=== PATIENT | female | born 1990 | race Caucasian/White ===

== ENCOUNTER 2024-02-08 21:01 | Emergency (ER) | payer MEDICARE, MEDICAID, SELFPAY ==
[2024-02-08] VITALS (22 sets, daily range): BP systolic 81–113; BP diastolic 52–79; PULSE 84–149; TEMP 36.7–36.9; O2SAT 88–98
--- NOTE | 2024-02-08 21:02 | ECG_ITS ---
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
--- NOTE | 2024-02-08 21:03 | ED_ITS ---
Documented by User: ISHA Nayak 02/08/24 21:25 HPI - Seizure General Chief Complaint: Seizure Stated Complaint: seizure Time Seen by Provider: 02/08/24 21:01 History of Present Illness HPI Narrative: Patient is a 33-year-old female with a history of cerebral palsy and developmental delay with reported history of seizure disorder from long-term care by ambulance for evaluation of possible seizure activity tonight. senior living reports that the patient has not quite been herself and they witnessed episodes of her tensing up which may be seizure activity. No falls or injuries. No reported fevers although the patient does feel warm on arrival. History is otherwise limited, patient is not able to contribute to the history. She is tachycardic at initial interview. EMS reports witnessing several episodes during transport of the patient arching her back and tensing her extremities. She is noted to have contractures of the legs. She is a full code. She is prescribed Dilantin, Depakote. Related Data Home Medications ?Medication ?Instructions ?Recorded ?Confirmed acetaminophen 325 mg tablet 650 mg PO Q4H PRN fever or pain 02/08/24 02/08/24 baclofen 20 mg tablet 20 mg PO BID 02/08/24 02/08/24 cetirizine 10 mg tablet 10 mg PO DAILY 02/08/24 02/08/24 divalproex 250 mg tablet,delayed 250 mg PO BID 02/08/24 02/08/24 release (Depakote) escitalopram oxalate 20 mg tablet 20 mg PO DAILY 02/08/24 02/08/24 lamotrigine 100 mg tablet 100 mg PO QPM 02/08/24 02/08/24 lamotrigine 150 mg tablet 150 mg PO DAILY 02/08/24 02/08/24 phenytoin sodium extended 100 mg 100 mg PO QAM 02/08/24 02/08/24 capsule phenytoin sodium extended 30 mg 130 mg PO QPM 02/08/24 02/08/24 capsule (Dilantin) Allergies Allergy/AdvReac Type Severity Reaction Status Date / Time azithromycin Allergy Severe Verified 02/08/24 21:08 Penicillins Allergy Severe Verified 02/08/24 21:08 Sulfa (Sulfonamide Allergy Severe Verified 02/08/24 21:08 Antibiotics) tramadol Allergy Severe Verified 02/08/24 21:08 Review of Systems ROS Status of ROS unobtainable due to medical condition and unobtainable due to mental status Exam Narrative Exam Narrative: Gen.: Awake, alert, in no distress Head: Atraumatic ENT: Moist mucous membranes; No dental injury Respiratory: No respiratory distress, lungs clear bilaterally Cardio: Tachycardia Gastrointestinal: Abdomen is soft, nondistended and nontender to palpation Extremities: Patient moves her upper extremities, lower extremities with contractures, right foot with severe contracture and deformity Psych: Normal mood and affect Neuro: No focal neuro deficit Skin: Warm, dry, intact; No rashes noted Constitutional Vital Signs, click to edit/add: Last Vital Signs Temp 98.0 F 02/08/24 23:33 Pulse 91 H 02/08/24 23:00 Resp 18 02/08/24 21:02 BP 92/66 02/08/24 23:00 Pulse Ox 97 02/08/24 23:00 O2 Del Method Room Air 02/08/24 21:02 Course Vital Signs Vital signs: Vital Signs Temperature 98.4 F 02/08/24 21:02 Pulse Rate 120 H 02/08/24 21:02 Respiratory Rate 18 02/08/24 21:02 Blood Pressure 113/79 02/08/24 21:02 Pulse Oximetry 96 02/08/24 21:02 Oxygen Delivery Method Room Air 02/08/24 21:02 Temperature 98.0 F 02/08/24 23:33 Pulse Rate 91 H 02/08/24 23:00 Respiratory Rate 18 02/08/24 21:02 Blood Pressure 92/66 02/08/24 23:00 Pulse Oximetry 97 02/08/24 23:00 Oxygen Delivery Method Room Air 02/08/24 21:02 MDM - Seizure MDM Narrative Medical decision making narrative: 2124: On arrival, patient was witnessed to have episodes of arching her back and tensing up. She has no dental injury, no other focal exam findings concerning for open wounds or rashes. No evidence of injury. She is tachycardic on arrival and IV fluids and sepsis labs were ordered including respiratory panel and chest x-ray. IV Valium ordered for seizure control. Lab results, chest x- ray results are pending at this time and case is turned over to attending physician for disposition. Medical Records Attestation: I reviewed the patient's medical records. Lab Data Attestation: I reviewed the patient's lab results. Labs: Lab Results 02/08/24 02/08/24 Range/Units 21:09 23:15 WBC 8.0 (4.0-11.0) 10^3/uL RBC 3.59 L (4.20-5.40) 10^6/uL Hgb 11.7 L (12.0-16.0) g/dL Hct 36.8 (36.0-48.0) % MCV 102.5 H (81.0-99.0) fL MCH 32.6 (26.7-34.0) pg MCHC 31.8 (29.9-35.2) g/dL RDW 14.5 (11.0-15.0) % Plt Count 283 (150-450) 10^3/uL MPV 9.5 (9.5-13.5) fL Neut % (Auto) 42.9 L (43.0-75.0) % Lymph % (Auto) 41.2 (20.5-60.0) % [place] % (Auto) 11.3 (1.7-12.0) % Eos % (Auto) 3.5 (0.9-7.0) % Baso % (Auto) 0.5 (0.2-2.0) % Neut # (Auto) 3.4 (1.4-6.5) 10^3/uL Lymph # (Auto) 3.3 (1.2-3.8) 10^3/uL [place] # (Auto) 0.9 H (0.3-0.8) 10^3/uL Eos # (Auto) 0.3 (0.0-0.7) 10^3/uL Baso # (Auto) 0.0 (0.0-0.1) 10^3/uL Abs Immat Gran (auto) 0.05 H (0.00-0.03) 10^3/uL Imm/Tot Granulo (auto) 0.6 H (0.0-0.5) % VBG pH 7.492 H (7.330-7.430) VBG pCO2 33.8 L (40.0-52.0) mmHg Sodium 142 (136-145) mmol/L Potassium 4.1 (3.5-5.1) mmol/L Chloride 104 (98-107) mmol/L Carbon Dioxide 27.4 (21.0-32.0) mmol/L Anion Gap 14.7 BUN 16.0 (7.0-18.0) mg/dL Creatinine 0.44 L (0.55-1.02) mg/dL Est GFR ( Amer) >60 (>=60) Est GFR (Non-Af Amer) >60 (>=60) BUN/Creatinine Ratio 36.4 Glucose 93 (74-106) mg/dL Lactate 3.4 H* 0.8 (0.4-2.0) mmol/L Calcium 9.7 (8.5-10.1) mg/dL Magnesium 1.7 L (1.8-2.4) mg/dL Total Bilirubin <0.1 L (0.2-1.0) mg/dL AST 15 (15-37) U/L ALT 19 (14-59) U/L Alkaline Phosphatase 133 H (46-116) U/L Total Protein 7.5 (6.4-8.2) g/dL Albumin 3.6 (3.4-5.0) g/dL Globulin 3.9 g/dL Albumin/Globulin Ratio 0.9 TSH 3.277 (0.358-3.740) uIU/mL Phenytoin 7.2 L (10.0-20.0) ug/mL ECG Data Attestation: I personally reviewed and interpreted this ECG as follows: (Sinus tachycardia at a rate of 128, no acute ST elevation, no ectopy. Mild artifact noted. EKG reviewed by attending physician) Discharge Plan Discharge Chief Complaint: Seizure Clinical Impression: Epileptic seizure, Seizure secondary to subtherapeutic anticonvulsant medication Prescriptions / Home Meds: No Action baclofen 20 mg tablet 20 mg PO BID cetirizine 10 mg tablet 10 mg PO DAILY Dilantin 30 mg capsule 130 mg PO QPM acetaminophen 325 mg tablet 650 mg PO Q4H PRN (Reason: fever or pain) escitalopram oxalate 20 mg tablet 20 mg PO DAILY lamotrigine 100 mg tablet 100 mg PO QPM lamotrigine 150 mg tablet 150 mg PO DAILY phenytoin sodium extended 100 mg capsule 100 mg PO QAM divalproex [Depakote] 250 mg tablet,delayed release (DR/EC) 250 mg PO BID Print Language: Malay Referrals: EZRA DOUGLAS [Primary Care Provider] - 1 week Documented by User: Jacqui Strauss MD 02/09/24 01:30 HPI - Seizure General Chief Complaint: Seizure Stated Complaint: seizure Time Seen by Provider: 02/08/24 21:01 Related Data Home Medications ?Medication ?Instructions ?Recorded ?Confirmed acetaminophen 325 mg tablet 650 mg PO Q4H PRN fever or pain 02/08/24 02/08/24 baclofen 20 mg tablet 20 mg PO BID 02/08/24 02/08/24 cetirizine 10 mg tablet 10 mg PO DAILY 02/08/24 02/08/24 divalproex 250 mg tablet,delayed 250 mg PO BID 02/08/24 02/08/24 release (Depakote) escitalopram oxalate 20 mg tablet 20 mg PO DAILY 02/08/24 02/08/24 lamotrigine 100 mg tablet 100 mg PO QPM 02/08/24 02/08/24 lamotrigine 150 mg tablet 150 mg PO DAILY 02/08/24 02/08/24 phenytoin sodium extended 100 mg 100 mg PO QAM 02/08/24 02/08/24 capsule phenytoin sodium extended 30 mg 130 mg PO QPM 02/08/24 02/08/24 capsule (Dilantin) Allergies Allergy/AdvReac Type Severity Reaction Status Date / Time azithromycin Allergy Severe Verified 02/08/24 21:08 Penicillins Allergy Severe Verified 02/08/24 21:08 Sulfa (Sulfonamide Allergy Severe Verified 02/08/24 21:08 Antibiotics) tramadol Allergy Severe Verified 02/08/24 21:08 Exam Constitutional Vital Signs, click to edit/add: Last Vital Signs Temp 98.0 F 02/08/24 23:33 Pulse 91 H 02/08/24 23:00 Resp 18 02/08/24 21:02 BP 92/66 02/08/24 23:00 Pulse Ox 97 02/08/24 23:00 O2 Del Method Room Air 02/08/24 21:02 Course Vital Signs Vital signs: Vital Signs Temperature 98.4 F 02/08/24 21:02 Pulse Rate 120 H 02/08/24 21:02 Respiratory Rate 18 02/08/24 21:02 Blood Pressure 113/79 02/08/24 21:02 Pulse Oximetry 96 02/08/24 21:02 Oxygen Delivery Method Room Air 02/08/24 21:02 Temperature 98.0 F 02/08/24 23:33 Pulse Rate 91 H 02/08/24 23:00 Respiratory Rate 18 02/08/24 21:02 Blood Pressure 92/66 02/08/24 23:00 Pulse Oximetry 97 02/08/24 23:00 Oxygen Delivery Method Room Air 02/08/24 21:02 MDM - Seizure MDM Narrative Medical decision making narrative: 2124: On arrival, patient was witnessed to have episodes of arching her back and tensing up. She has no dental injury, no other focal exam findings concerning for open wounds or rashes. No evidence of injury. She is tachycardic on arrival and IV fluids and sepsis labs were ordered including respiratory panel and chest x-ray. IV Valium ordered for seizure control. Lab results, chest x- ray results are pending at this time and case is turned over to attending physician for disposition. Patient was seen and evaluated in conjunction with the physician entry level marketing assistant. She presents for evaluation of seizure-like activity. She is on Depakote and Dilantin. She does not have a fever. Rectal temperature was 98 degrees Fahrenheit. She was medicated with IV fluids and Valium and has not had any additional seizure-like activity. I was able to speak to her mother who states that she is on seizure medications because she has a history of seizures has not had any seizures an extended period of time. Her neurologist is Dr. Singh at [facility]. The mother states that she did speak to her earlier today and she was complaining of some itchy eyes like ALLERGY related symptoms. The patient's mother was unaware that he was in the emergency department but had received a call that she was being transferred here. After IV fluids, she is awake, alert, complains of a headache. She Was given some oral Tylenol. The patient's mother did come to the emergency department and the patient is alert and interactive with her mother. I had ordered IV Dilantin for the patient but she declined it. Her mother recalls that she had an episode where she received IV Dilantin in the past and was out of it for 3 days. The patient is at her neurologic baseline according to her mother and will likely be able to be returned to the extended care facility. I will suggest that Dilantin levels are followed closely and that her Dilantin medication is increased. Mother states that she had a Dilantin level checked approximately one week ago and it was 12. It is unclear why the patient's Dilantin level has dropped. She is afebrile and otherwise has been in her normal state of health. The patient is anxious to be discharged to the [facility] where she lives and her mother is in agreement with this plan. Her mom will contact the neurologist at [facility] later this morning for dose adjustment of the dilantin and further management. Medical Records Medical records narrative: The [place] [id number] XRay Report Signed Patient: DEBRA URRUTIA MR#: [id number] : 1990 Acct:[id number] Age/Sex: 33 / F ADM Date: 02/08/24 Loc: ER Attending Dr: Ordering Physician: Lashae Guadarrama Date of Service: 02/08/24 Procedure(s): XR chest 1V Accession Number(s): [id number] cc: Lashae Guadarrama; EZRA DOUGLAS ~ The [address] [address] Patient Name: DEBRA URRUTIA MRN: [id number] date: 1990 Sex: F Assigned Patient Location: ED.MAIN Current Patient Location: ED.MAIN Accession/Order Number: [id number] Exam Date: 02/08/2024 21:20 Report Date: 02/08/2024 21:57 At the request of: LASHAE GUADARRAMA Procedure: XR chest 1V EXAM: XR chest 1V HISTORY: altered COMPARISON: Acute abdominal series x-ray 11/02/2011 TECHNIQUE: Single frontal view chest x-ray FINDINGS: Mild streaky opacities at the left lower lung retrocardiac region. No large pleural effusion, pneumothorax, or acute bony abnormality. Cardiac size is unremarkable. Thoracal lumbar hardware is seen. XR/XR chest 1V IMPRESSION: Mild streaky opacities at the left lower lung retrocardiac region reflecting atelectasis, less likely mild lung infiltrates. Electronically authenticated by: NIKKI DILLON Date: 02/08/2024 21:57 Lab Data Labs: Lab Results 02/08/24 02/08/24 Range/Units 21:09 23:15 WBC 8.0 (4.0-11.0) 10^3/uL RBC 3.59 L (4.20-5.40) 10^6/uL Hgb 11.7 L (12.0-16.0) g/dL Hct 36.8 (36.0-48.0) % MCV 102.5 H (81.0-99.0) fL MCH 32.6 (26.7-34.0) pg MCHC 31.8 (29.9-35.2) g/dL RDW 14.5 (11.0-15.0) % Plt Count 283 (150-450) 10^3/uL MPV 9.5 (9.5-13.5) fL Neut % (Auto) 42.9 L (43.0-75.0) % Lymph % (Auto) 41.2 (20.5-60.0) % [place] % (Auto) 11.3 (1.7-12.0) % Eos % (Auto) 3.5 (0.9-7.0) % Baso % (Auto) 0.5 (0.2-2.0) % Neut # (Auto) 3.4 (1.4-6.5) 10^3/uL Lymph # (Auto) 3.3 (1.2-3.8) 10^3/uL [place] # (Auto) 0.9 H (0.3-0.8) 10^3/uL Eos # (Auto) 0.3 (0.0-0.7) 10^3/uL Baso # (Auto) 0.0 (0.0-0.1) 10^3/uL Abs Immat Gran (auto) 0.05 H (0.00-0.03) 10^3/uL Imm/Tot Granulo (auto) 0.6 H (0.0-0.5) % VBG pH 7.492 H (7.330-7.430) VBG pCO2 33.8 L (40.0-52.0) mmHg Sodium 142 (136-145) mmol/L Potassium 4.1 (3.5-5.1) mmol/L Chloride 104 (98-107) mmol/L Carbon Dioxide 27.4 (21.0-32.0) mmol/L Anion Gap 14.7 BUN 16.0 (7.0-18.0) mg/dL Creatinine 0.44 L (0.55-1.02) mg/dL Est GFR ( Amer) >60 (>=60) Est GFR (Non-Af Amer) >60 (>=60) BUN/Creatinine Ratio 36.4 Glucose 93 (74-106) mg/dL Lactate 3.4 H* 0.8 (0.4-2.0) mmol/L Calcium 9.7 (8.5-10.1) mg/dL Magnesium 1.7 L (1.8-2.4) mg/dL Total Bilirubin <0.1 L (0.2-1.0) mg/dL AST 15 (15-37) U/L ALT 19 (14-59) U/L Alkaline Phosphatase 133 H (46-116) U/L Total Protein 7.5 (6.4-8.2) g/dL Albumin 3.6 (3.4-5.0) g/dL Globulin 3.9 g/dL Albumin/Globulin Ratio 0.9 TSH 3.277 (0.358-3.740) uIU/mL Phenytoin 7.2 L (10.0-20.0) ug/mL Discharge Plan Discharge Chief Complaint: Seizure Clinical Impression: Epileptic seizure, Seizure secondary to subtherapeutic anticonvulsant medication Prescriptions / Home Meds: No Action baclofen 20 mg tablet 20 mg PO BID cetirizine 10 mg tablet 10 mg PO DAILY Dilantin 30 mg capsule 130 mg PO QPM acetaminophen 325 mg tablet 650 mg PO Q4H PRN (Reason: fever or pain) escitalopram oxalate 20 mg tablet 20 mg PO DAILY lamotrigine 100 mg tablet 100 mg PO QPM lamotrigine 150 mg tablet 150 mg PO DAILY phenytoin sodium extended 100 mg capsule 100 mg PO QAM divalproex [Depakote] 250 mg tablet,delayed release (DR/EC) 250 mg PO BID Print Language: Malay Referrals: EZRA DOUGLAS [Primary Care Provider] - 1 week
--- NOTE | 2024-02-08 21:03 | XR_ITS ---
The [address] [address] Patient Name: DEBRA URRUTIA MRN: [id number] date: 1990 Sex: F Assigned Patient Location: ED.MAIN Current Patient Location: ED.MAIN Accession/Order Number: [id number] Exam Date: 02/08/2024 21:20 Report Date: 02/08/2024 21:57 At the request of: LASHAE GUADARRAMA Procedure: XR chest 1V EXAM: XR chest 1V HISTORY: altered COMPARISON: Acute abdominal series x-ray 11/02/2011 TECHNIQUE: Single frontal view chest x-ray FINDINGS: Mild streaky opacities at the left lower lung retrocardiac region. No large pleural effusion, pneumothorax, or acute bony abnormality. Cardiac size is unremarkable. Thoracal lumbar hardware is seen. XR/XR chest 1V IMPRESSION: Mild streaky opacities at the left lower lung retrocardiac region reflecting atelectasis, less likely mild lung infiltrates. Electronically authenticated by: NIKIK DILLON Date: 02/08/2024 21:57
[2024-02-08] MEDS: DIAZEPAM 10 MG/2 ML SYRINGE 2 MG IV (21:24)
[2024-02-08 21:25] LABS: Basophils Percent Auto 0.5 % (0.2-2.0); Eosinophils Absolute Auto 0.3 10^3/uL (0.0-0.7); Eosinophils Percent Auto 3.5 % (0.9-7.0); Hematocrit 36.8 % (36.0-48.0); Hemoglobin 11.7 g/dL (12.0-16.0); Immature Granulocytes Abs Auto 0.05 10^3/uL (0.00-0.03); Immature Granulocytes Pct Auto 0.6 % (0.0-0.5); Lymphocytes Absolute Auto 3.3 10^3/uL (1.2-3.8); Lymphocytes Percent Auto 41.2 % (20.5-60.0); Mean Corpuscular HGB Conc 31.8 g/dL (29.9-35.2); Mean Corpuscular Hemoglobin 32.6 pg (26.7-34.0); Mean Corpuscular Volume 102.5 fL (81.0-99.0); Mean Platelet Volume 9.5 fL (9.5-13.5); Monocytes Absolute Auto 0.9 10^3/uL (0.3-0.8); Monocytes Percent Auto 11.3 % (1.7-12.0); Neutrophils Absolute Auto 3.4 10^3/uL (1.4-6.5); Neutrophils Percent Auto 42.9 % (43.0-75.0); Platelet Count 283 10^3/uL (150-450); Red Blood Count 3.59 10^6/uL (4.20-5.40); Red Cell Distribution Width 14.5 % (11.0-15.0)
[2024-02-08] MEDS: 0.9 % SODIUM CHLORIDE 1,000 ML 1000 ML IV (21:25)
[2024-02-08 21:27] LABS: PCO2 VBG 33.8 mmHg (40.0-52.0); pH VBG 7.492 (7.330-7.430)
[2024-02-08 21:42] LABS: Alanine Aminotransferase 19 U/L (14-59); Albumin Globulin Ratio 0.9; Albumin Level 3.6 g/dL (3.4-5.0); Alkaline Phosphatase 133 U/L (46-116); Anion Gap 14.7; Aspartate Amino Transferase 15 U/L (15-37); BUN Creatinine Ratio 36.4; Calcium 9.7 mg/dL (8.5-10.1); Carbon Dioxide 27.4 mmol/L (21.0-32.0); Chloride 104 mmol/L (98-107); Estimated GFR (African America >60 (>=60); Estimated GFR (Non-African Ame >60 (>=60); Globulin 3.9 g/dL; Glucose 93 mg/dL (74-106); Potassium 4.1 mmol/L (3.5-5.1); Sodium 142 mmol/L (136-145); Total Protein 7.5 g/dL (6.4-8.2)
[2024-02-08 21:51] LABS: Magnesium 1.7 mg/dL (1.8-2.4); Thyroid Stimulating Hormone 3.277 uIU/mL (0.358-3.740)
[2024-02-08 21:52] LABS: Bilirubin Total <0.1 mg/dL (0.2-1.0)
[2024-02-08 21:53] LABS: Lactate/Lactic Acid 3.4 mmol/L (0.4-2.0)
[2024-02-08 23:14] LABS: Phenytoin Dilantin 7.2 ug/mL (10.0-20.0)
[2024-02-08 23:46] LABS: Lactate/Lactic Acid 0.8 mmol/L (0.4-2.0)
[2024-02-09] VITALS (11 sets, daily range): BP systolic 94–113; BP diastolic 75–78; PULSE 86–98; O2SAT 95–98
[2024-02-09] MEDS: ACETAMINOPHEN 325 MG TABLET 650 MG PO (00:13)
[2024-02-09] MEDS: PHENYTOIN SODIUM EXTENDED 100 MG CAPSULE 200 MG PO (01:16)
== END 2024-02-09 03:15 | disposition home or self-care (01) ==
PROVIDERS: Physician Assistant; Emergency Provider Emergency Medicine; PCP Family Medicine
DX: G40.909 Epilepsy, unspecified, not intractable, without status epilepticus (principal); R89.2 Abnormal level of other drugs, medicaments and biological substances in specimens from other organs, systems and tissues; Z79.899 Other long term (current) drug therapy; G80.9 Cerebral palsy, unspecified
CPT/HCPCS: 0202U; 36415; 71045; 80053; 80185; 82800; 83605; 83735; 84443; 85025; 87040; 93005; 96374; 99285

== ENCOUNTER 2024-02-09 21:03 | Emergency (ER) | payer MEDICARE, MEDICAID, SELFPAY ==
[2024-02-09] VITALS (14 sets, daily range): BP systolic 102; BP diastolic 64; PULSE 83–99; TEMP 36.6; O2SAT 95–98; BMI 24.4
--- NOTE | 2024-02-09 21:09 | ED_ITS ---
HPI - Seizure General Chief Complaint: Seizure Stated Complaint: SEIZURE Time Seen by Provider: 02/09/24 21:05 History of Present Illness HPI Narrative: patient is not able to communicate. History of Epilepsy. Witnessed seizure tonight at correction. sheet taker states lasted about 5 minutes and started while they were brushing her teeth. She arrives via Squad awake and per her computer network and systems engineer back to her baseline. No history of injury MD complaint: Reports seizure Related Data Home Medications ?Medication ?Instructions ?Recorded ?Confirmed acetaminophen 325 mg tablet 650 mg PO Q4H PRN fever or pain 02/08/24 02/09/24 baclofen 20 mg tablet 20 mg PO BID 02/08/24 02/09/24 cetirizine 10 mg tablet 10 mg PO DAILY 02/08/24 02/09/24 divalproex 250 mg tablet,delayed 250 mg PO BID 02/08/24 02/09/24 release (Depakote) escitalopram oxalate 20 mg tablet 20 mg PO DAILY 02/08/24 02/09/24 lamotrigine 100 mg tablet 100 mg PO QPM 02/08/24 02/09/24 lamotrigine 150 mg tablet 150 mg PO DAILY 02/08/24 02/09/24 phenytoin sodium extended 100 mg 100 mg PO QAM 02/08/24 02/09/24 capsule phenytoin sodium extended 30 mg 130 mg PO QPM 02/08/24 02/09/24 capsule (Dilantin) divalproex 125 mg tablet,delayed mg PO 02/09/24 release Allergies Allergy/AdvReac Type Severity Reaction Status Date / Time azithromycin Allergy Severe Verified 02/12/24 22:13 Penicillins Allergy Severe Verified 02/12/24 22:13 Sulfa (Sulfonamide Allergy Severe Verified 02/12/24 22:13 Antibiotics) tramadol Allergy Severe Verified 02/12/24 22:13 Review of Systems ROS Status of ROS unobtainable due to mental status Exam Constitutional Vital Signs, click to edit/add: Last Vital Signs Temp 98 F 02/09/24 21:05 Pulse 86 02/09/24 23:20 Resp 16 02/09/24 21:05 BP 102/64 02/09/24 21:05 Pulse Ox 97 02/09/24 23:20 O2 Del Method Room Air 02/09/24 21:05 Common normals: no apparent distress and alert HENMT Common normals: normocephalic and head/scalp atraumatic Eye Common normals: conjunctivae normal Respiratory Common normals: normal respiratory effort, no retractions, no use of accessory muscles and clear to auscultation bilaterally Cardio Common normals: regular rate, regular rhythm, S1 normal heart sound and S2 normal heart sound GI Common normals: Normal to inspection, nondistended, normoactive bowel sounds present, soft to palpation and non-tender Extremity Other: severe flexor contracture of upper ext and lower Neuro Sensorium/orientation: awake and alert Course Vital Signs Vital signs: Vital Signs Temperature 98 F 02/09/24 21:05 Pulse Rate 98 H 02/09/24 21:05 Respiratory Rate 16 02/09/24 21:05 Blood Pressure 102/64 02/09/24 21:05 Pulse Oximetry 98 02/09/24 21:05 Oxygen Delivery Method Room Air 02/09/24 21:05 Temperature 98 F 02/09/24 21:05 Pulse Rate 86 02/09/24 23:20 Respiratory Rate 16 02/09/24 21:05 Blood Pressure 102/64 02/09/24 21:05 Pulse Oximetry 97 02/09/24 23:20 Oxygen Delivery Method Room Air 02/09/24 21:05 MDM - Seizure MDM Narrative Medical decision making narrative: patients from correction post seizure. Shortly after arrival to the ER she had another seizure that lasted about 2 minutes. Nursing describes her as tensing tonic and rigid , unresponsive and her heart rate increasing. Resolved spontaneously. labs ordered including depakote and dilantin levels both dilantin and depakote levels are subtherapeutic. IV dilantin ordered but her mother did not want her to receive a gram of dilantin. After discussion with the mother ordered was changed to Dilantin 500mg and Depakote 500mg po. Patient discharged back to her home. Lab Data Labs: Lab Results 02/09/24 02/09/24 Range/Units 21:22 21:43 WBC 5.7 (4.0-11.0) 10^3/uL RBC 3.06 L (4.20-5.40) 10^6/uL Hgb 9.9 L (12.0-16.0) g/dL Hct 31.2 L (36.0-48.0) % MCV 102.0 H (81.0-99.0) fL MCH 32.4 (26.7-34.0) pg MCHC 31.7 (29.9-35.2) g/dL RDW 14.5 (11.0-15.0) % Plt Count 227 (150-450) 10^3/uL MPV 9.1 L (9.5-13.5) fL Neut % (Auto) 42.2 L (43.0-75.0) % Lymph % (Auto) 42.3 (20.5-60.0) % [place] % (Auto) 11.1 (1.7-12.0) % Eos % (Auto) 3.5 (0.9-7.0) % Baso % (Auto) 0.4 (0.2-2.0) % Neut # (Auto) 2.4 (1.4-6.5) 10^3/uL Lymph # (Auto) 2.4 (1.2-3.8) 10^3/uL [place] # (Auto) 0.6 (0.3-0.8) 10^3/uL Eos # (Auto) 0.2 (0.0-0.7) 10^3/uL Baso # (Auto) 0.0 (0.0-0.1) 10^3/uL Abs Immat Gran (auto) 0.03 (0.00-0.03) 10^3/uL Imm/Tot Granulo (auto) 0.5 (0.0-0.5) % Sodium 143 (136-145) mmol/L Potassium 3.4 L (3.5-5.1) mmol/L Chloride 107 (98-107) mmol/L Carbon Dioxide 28.4 (21.0-32.0) mmol/L Anion Gap 11.0 BUN 9.0 (7.0-18.0) mg/dL Creatinine 0.38 L (0.55-1.02) mg/dL Est GFR ( Amer) >60 (>=60) Est GFR (Non-Af Amer) >60 (>=60) BUN/Creatinine Ratio 23.7 Glucose 136 H (74-106) mg/dL Calcium 8.6 (8.5-10.1) mg/dL Magnesium 1.6 L (1.8-2.4) mg/dL Total Bilirubin <0.1 L (0.2-1.0) mg/dL AST 10 L (15-37) U/L ALT 14 (14-59) U/L Alkaline Phosphatase 94 (46-116) U/L Total Protein 6.0 L (6.4-8.2) g/dL Albumin 2.9 L (3.4-5.0) g/dL Globulin 3.1 g/dL Albumin/Globulin Ratio 0.9 Phenytoin 6.6 L (10.0-20.0) ug/mL Valproic Acid 31.5 L (50.0-100.0) ug/mL POC Glucose 105 (74-106) mg/dL Discharge Plan Discharge Stand Alone Forms: Portal Instructions Chief Complaint: Seizure Clinical Impression: Seizure secondary to subtherapeutic anticonvulsant medication Patient Disposition: Home, Self-Care Prescriptions / Home Meds: No Action baclofen 20 mg tablet 20 mg PO BID cetirizine 10 mg tablet 10 mg PO DAILY Dilantin 30 mg capsule 130 mg PO QPM acetaminophen 325 mg tablet 650 mg PO Q4H PRN (Reason: fever or pain) escitalopram oxalate 20 mg tablet 20 mg PO DAILY lamotrigine 100 mg tablet 100 mg PO QPM lamotrigine 150 mg tablet 150 mg PO DAILY phenytoin sodium extended 100 mg capsule 100 mg PO QAM divalproex [Depakote] 250 mg tablet,delayed release (DR/EC) 250 mg PO BID divalproex 125 mg tablet,delayed release (DR/EC) PO Hold Instructions: Doctor's Order Print Language: Sammarinese Instructions: Epilepsy (ED) Additional Instructions: follow up with family doctor and discuss consideration to increase dosage of anticonvulsants as both are subtherapeutic Referrals: EZRA DOUGLAS [Primary Care Provider] - 1 week Discharge Date/Time: 02/10/24 01:53
--- NOTE | 2024-02-09 21:20 | ECG_ITS ---
The [facility] Test Date: 2024-02-09 Pat Name: DEBRA URRUTIA Department: Room: - Gender: Female Physician Obstetrician: : 1990 Requested By: 1031 Order Number: [id number] Reading MD: TIFFANY LUCAS Measurements Intervals [place] Rate: 95 P: 41 IA: 162 QRS: 19 QRSD: 84 T: 26 QT: 354 QTc: 406 Interpretive Statements 1100 Sinus rhythm 4068 Nonspecific [place] abnormality 9130 borderline ECG Compared to ECG 02/08/2024 21:15:10 Sinus tachycardia no longer present Electronically Signed On 02-11-2024 7:24:21 EDT by TIFFANY LUCAS
[2024-02-09 21:28] LABS: Basophils Percent Auto 0.4 % (0.2-2.0); Eosinophils Absolute Auto 0.2 10^3/uL (0.0-0.7); Eosinophils Percent Auto 3.5 % (0.9-7.0); Hematocrit 31.2 % (36.0-48.0); Hemoglobin 9.9 g/dL (12.0-16.0); Immature Granulocytes Abs Auto 0.03 10^3/uL (0.00-0.03); Immature Granulocytes Pct Auto 0.5 % (0.0-0.5); Lymphocytes Absolute Auto 2.4 10^3/uL (1.2-3.8); Lymphocytes Percent Auto 42.3 % (20.5-60.0); Mean Corpuscular HGB Conc 31.7 g/dL (29.9-35.2); Mean Corpuscular Hemoglobin 32.4 pg (26.7-34.0); Mean Platelet Volume 9.1 fL (9.5-13.5); Monocytes Absolute Auto 0.6 10^3/uL (0.3-0.8); Monocytes Percent Auto 11.1 % (1.7-12.0); Neutrophils Absolute Auto 2.4 10^3/uL (1.4-6.5); Neutrophils Percent Auto 42.2 % (43.0-75.0); Platelet Count 227 10^3/uL (150-450); Red Blood Count 3.06 10^6/uL (4.20-5.40); Red Cell Distribution Width 14.5 % (11.0-15.0); White Blood Count 5.7 10^3/uL (4.0-11.0)
[2024-02-09 21:43] LABS: Glucometer 105 mg/dL (74-106)
[2024-02-09 21:50] LABS: Valproic Acid 31.5 ug/mL (50.0-100.0)
[2024-02-09 21:51] LABS: Phenytoin Dilantin 6.6 ug/mL (10.0-20.0)
[2024-02-09 21:54] LABS: Alanine Aminotransferase 14 U/L (14-59); Albumin Globulin Ratio 0.9; Albumin Level 2.9 g/dL (3.4-5.0); Alkaline Phosphatase 94 U/L (46-116); Aspartate Amino Transferase 10 U/L (15-37); BUN Creatinine Ratio 23.7; Bilirubin Total <0.1 mg/dL (0.2-1.0); Calcium 8.6 mg/dL (8.5-10.1); Carbon Dioxide 28.4 mmol/L (21.0-32.0); Chloride 107 mmol/L (98-107); Estimated GFR (African America >60 (>=60); Estimated GFR (Non-African Ame >60 (>=60); Globulin 3.1 g/dL; Glucose 136 mg/dL (74-106); Magnesium 1.6 mg/dL (1.8-2.4); Potassium 3.4 mmol/L (3.5-5.1); Sodium 143 mmol/L (136-145)
[2024-02-09] MEDS: VALPROIC ACID 250 MG CAPSULE 500 MG PO (23:35)
[2024-02-09] MEDS: PHENYTOIN SODIUM EXTENDED 100 MG CAPSULE 500 MG PO (23:37)
== END 2024-02-10 01:53 | disposition home or self-care (01) ==
PROVIDERS: Emergency Provider Internal Medicine; PCP Family Medicine
DX: G40.909 Epilepsy, unspecified, not intractable, without status epilepticus (principal); Z79.899 Other long term (current) drug therapy; R89.2 Abnormal level of other drugs, medicaments and biological substances in specimens from other organs, systems and tissues; G80.9 Cerebral palsy, unspecified
CPT/HCPCS: 36415; 71045; 80053; 80164; 80185; 82800; 83605; 83735; 84443; 85025; 87040; 93005; 96374; 99284; 99285

== ENCOUNTER 2024-02-10 15:30 | Emergency (ER) | payer MEDICARE, MEDICAID, SELFPAY ==
[2024-02-10 15:35] VITALS: BP 110/64; PULSE 108; TEMP 36.2; O2SAT 100; BMI 15.6
[2024-02-10 15:50] VITALS: O2SAT 97
[2024-02-10 16:04] LABS: Basophils Percent Auto 0.4 % (0.2-2.0); Eosinophils Absolute Auto 0.2 10^3/uL (0.0-0.7); Eosinophils Percent Auto 2.7 % (0.9-7.0); Hematocrit 34.5 % (36.0-48.0); Hemoglobin 10.7 g/dL (12.0-16.0); Immature Granulocytes Abs Auto 0.03 10^3/uL (0.00-0.03); Immature Granulocytes Pct Auto 0.4 % (0.0-0.5); Lymphocytes Absolute Auto 2.7 10^3/uL (1.2-3.8); Mean Corpuscular Hemoglobin 32.3 pg (26.7-34.0); Mean Corpuscular Volume 104.2 fL (81.0-99.0); Mean Platelet Volume 9.2 fL (9.5-13.5); Monocytes Absolute Auto 0.7 10^3/uL (0.3-0.8); Monocytes Percent Auto 7.9 % (1.7-12.0); Neutrophils Absolute Auto 4.8 10^3/uL (1.4-6.5); Neutrophils Percent Auto 56.6 % (43.0-75.0); Platelet Count 261 10^3/uL (150-450); Red Blood Count 3.31 10^6/uL (4.20-5.40); Red Cell Distribution Width 14.4 % (11.0-15.0); White Blood Count 8.5 10^3/uL (4.0-11.0)
[2024-02-10 16:20] LABS: Alanine Aminotransferase 14 U/L (14-59); Albumin Globulin Ratio 0.9; Albumin Level 3.2 g/dL (3.4-5.0); Alkaline Phosphatase 100 U/L (46-116); Anion Gap 11.6; Aspartate Amino Transferase 12 U/L (15-37); BUN Creatinine Ratio 21.6; Bilirubin Total 0.1 mg/dL (0.2-1.0); Calcium 9.2 mg/dL (8.5-10.1); Carbon Dioxide 27.6 mmol/L (21.0-32.0); Chloride 104 mmol/L (98-107); Estimated GFR (African America >60 (>=60); Estimated GFR (Non-African Ame >60 (>=60); Globulin 3.4 g/dL; Glucose 88 mg/dL (74-106); Magnesium 1.7 mg/dL (1.8-2.4); Potassium 4.2 mmol/L (3.5-5.1); Sodium 139 mmol/L (136-145); Total Protein 6.6 g/dL (6.4-8.2); Valproic Acid 37.7 ug/mL (50.0-100.0)
[2024-02-10 16:26] LABS: Phenytoin Dilantin 11.3 ug/mL (10.0-20.0)
--- NOTE | 2024-02-10 16:28 | ED_ITS ---
HPI - Seizure General Chief Complaint: Seizure Stated Complaint: SEIZURE Time Seen by Provider: 02/10/24 15:44 Source: patient, family and caregiver Mode of arrival: ambulance Limitations: language barrier, altered mental status and physical limitation History of Present Illness HPI Narrative: The patient is coming to us from a long-term with history of seizure disorder, as well as history of multiple comorbidities, the patient brought to us by her caregiver who is her mother, there was no specific symptoms for the patient but she did mention that she is feeling cramps in her upper body and lower body since she had her seizure medication increased yesterday after her antiseizure medication levels were low, the patient denies any seizure since yesterday there was no other complaint that is specific, she mentioned that she feels that she is fussy and cramping in her lower extremities The patient is not able to verbally communicate but she is providing history through her mother who she will communicate to her by nonverbal Seizure History: Yes Place: extended care facility Related Data Home Medications ?Medication ?Instructions ?Recorded ?Confirmed acetaminophen 325 mg tablet 650 mg PO Q4H PRN fever or pain 02/08/24 02/09/24 baclofen 20 mg tablet 20 mg PO BID 02/08/24 02/09/24 cetirizine 10 mg tablet 10 mg PO DAILY 02/08/24 02/09/24 divalproex 250 mg tablet,delayed 250 mg PO BID 02/08/24 02/09/24 release (Depakote) escitalopram oxalate 20 mg tablet 20 mg PO DAILY 02/08/24 02/09/24 lamotrigine 100 mg tablet 100 mg PO QPM 02/08/24 02/09/24 lamotrigine 150 mg tablet 150 mg PO DAILY 02/08/24 02/09/24 phenytoin sodium extended 100 mg 100 mg PO QAM 02/08/24 02/09/24 capsule phenytoin sodium extended 30 mg 130 mg PO QPM 02/08/24 02/09/24 capsule (Dilantin) divalproex 125 mg tablet,delayed mg PO 02/09/24 release Allergies Allergy/AdvReac Type Severity Reaction Status Date / Time azithromycin Allergy Severe Verified 02/10/24 15:48 Penicillins Allergy Severe Verified 02/10/24 15:48 Sulfa (Sulfonamide Allergy Severe Verified 02/10/24 15:48 Antibiotics) tramadol Allergy Severe Verified 02/10/24 15:48 Review of Systems ROS Status of ROS 10 or more systems reviewed and unremark able except as noted in history and below Exam Narrative Exam Narrative: Nurses notes and vital signs reviewed and patient is not hypoxic. General: Well-appearing and in no apparent distress. Skin: Warm, dry, no pallor noted. No rash. Head: Normocephalic, atraumatic. Neck: Supple, non-tender. Eye: Pupils are equal, round and EOMI. No scleral icterus. Ears, Nose, Mouth, and Throat: TM are clear, no nasal mucosal hypertrophy. Oral mucosa is moist, no posterior oropharynx erythema, uvula is mid-line Cardiovascular: Regular Rate and Rhythm without murmur, gallop or rub. Respiratory: No accessory muscle use or respiratory distress. Lungs are clear to auscultation, no wheezing, rales or rhonchi Chest Wall: no tenderness Back: No midline thoracic or lumbar vertebral tenderness. No CVA tenderness Musculoskeletal: The patient have a equal upper and lower extremity movements but she have multiple atrophies and limited movement due to her previous history of possible palsy GI: Abdomen is soft, non-distended. Normal bowel sounds. No masses appreciated. No tenderness to palpation. No rebound, guarding, or rigidity noted. Neurological: The patient is nonverbal she have atrophy of the upper and lower extremities but she is awake able to communicate while talking to her mother nonverbally Constitutional Vital Signs, click to edit/add: Last Vital Signs Temp 97.2 F L 02/10/24 15:35 Pulse 108 H 02/10/24 15:35 Resp 18 02/10/24 15:35 BP 110/64 02/10/24 15:35 Pulse Ox 97 02/10/24 15:50 O2 Del Method Room Air 02/10/24 15:50 Course Vital Signs Vital signs: Vital Signs Temperature 97.2 F L 02/10/24 15:35 Pulse Rate 108 H 02/10/24 15:35 Respiratory Rate 18 02/10/24 15:35 Blood Pressure 110/64 02/10/24 15:35 Pulse Oximetry 100 02/10/24 15:35 Oxygen Delivery Method Room Air 02/10/24 15:35 Temperature 97.2 F L 02/10/24 15:35 Pulse Rate 108 H 02/10/24 15:35 Respiratory Rate 18 02/10/24 15:35 Blood Pressure 110/64 02/10/24 15:35 Pulse Oximetry 97 02/10/24 15:50 Oxygen Delivery Method Room Air 02/10/24 15:50 MDM - Seizure MDM Narrative Medical decision making narrative: The patient CBC chemistry showed no acute significant pathology except for the hypomagnesemia She had been provided with 1 g of magnesium I did notice 1 cramp in his right leg that was involuntary and she was provided with Ativan to help her symptoms, she does take baclofen for muscle spasm The patient valproic acid and Dilantin levels are improving Patient was discharged to follow-up with her neurologist as outpatient The patient is to follow up with primary care physician in next 2-3 days or to return to the emergency department should any of the signs or symptoms worsen or new symptoms develop. The patient agrees with the following Diagnosis and Treatment plan and the patient will be discharged home. Lab Data Labs: Lab Results 02/10/24 Range/Units 15:55 WBC 8.5 (4.0-11.0) 10^3/uL RBC 3.31 L (4.20-5.40) 10^6/uL Hgb 10.7 L (12.0-16.0) g/dL Hct 34.5 L (36.0-48.0) % MCV 104.2 H (81.0-99.0) fL MCH 32.3 (26.7-34.0) pg MCHC 31.0 (29.9-35.2) g/dL RDW 14.4 (11.0-15.0) % Plt Count 261 (150-450) 10^3/uL MPV 9.2 L (9.5-13.5) fL Neut % (Auto) 56.6 (43.0-75.0) % Lymph % (Auto) 32.0 (20.5-60.0) % [place] % (Auto) 7.9 (1.7-12.0) % Eos % (Auto) 2.7 (0.9-7.0) % Baso % (Auto) 0.4 (0.2-2.0) % Neut # (Auto) 4.8 (1.4-6.5) 10^3/uL Lymph # (Auto) 2.7 (1.2-3.8) 10^3/uL [place] # (Auto) 0.7 (0.3-0.8) 10^3/uL Eos # (Auto) 0.2 (0.0-0.7) 10^3/uL Baso # (Auto) 0.0 (0.0-0.1) 10^3/uL Abs Immat Gran (auto) 0.03 (0.00-0.03) 10^3/uL Imm/Tot Granulo (auto) 0.4 (0.0-0.5) % Sodium 139 (136-145) mmol/L Potassium 4.2 (3.5-5.1) mmol/L Chloride 104 (98-107) mmol/L Carbon Dioxide 27.6 (21.0-32.0) mmol/L Anion Gap 11.6 BUN 8.0 (7.0-18.0) mg/dL Creatinine 0.37 L (0.55-1.02) mg/dL Est GFR ( Amer) >60 (>=60) Est GFR (Non-Af Amer) >60 (>=60) BUN/Creatinine Ratio 21.6 Glucose 88 (74-106) mg/dL Calcium 9.2 (8.5-10.1) mg/dL Magnesium 1.7 L (1.8-2.4) mg/dL Total Bilirubin 0.1 L (0.2-1.0) mg/dL AST 12 L (15-37) U/L ALT 14 (14-59) U/L Alkaline Phosphatase 100 (46-116) U/L Total Protein 6.6 (6.4-8.2) g/dL Albumin 3.2 L (3.4-5.0) g/dL Globulin 3.4 g/dL Albumin/Globulin Ratio 0.9 Phenytoin 11.3 (10.0-20.0) ug/mL Valproic Acid 37.7 L (50.0-100.0) ug/mL Discharge Plan Discharge Stand Alone Forms: Portal Instructions Chief Complaint: Seizure Clinical Impression: Cramp in muscle, Hypomagnesemia Patient Disposition: Home, Self-Care Time of Disposition Decision: 17:47 Prescriptions / Home Meds: No Action baclofen 20 mg tablet 20 mg PO BID cetirizine 10 mg tablet 10 mg PO DAILY Dilantin 30 mg capsule 130 mg PO QPM acetaminophen 325 mg tablet 650 mg PO Q4H PRN (Reason: fever or pain) escitalopram oxalate 20 mg tablet 20 mg PO DAILY lamotrigine 100 mg tablet 100 mg PO QPM lamotrigine 150 mg tablet 150 mg PO DAILY phenytoin sodium extended 100 mg capsule 100 mg PO QAM divalproex [Depakote] 250 mg tablet,delayed release (DR/EC) 250 mg PO BID divalproex 125 mg tablet,delayed release (DR/EC) PO Hold Instructions: Doctor's Order Print Language: Amharic Instructions: Leg Cramps (ED), Hypomagnesemia (ED) Referrals: EZRA DOUGLAS [Primary Care Provider] - 1 week
[2024-02-10] MEDS: LORAZEPAM 2 MG/ML VIAL 0.5 MG IV (16:55)
[2024-02-10] MEDS: MAGNESIUM SULFATE/D5W 1 GM/100 ML PREMIX IV (16:55)
== END 2024-02-10 18:58 | disposition home or self-care (01) ==
PROVIDERS: Emergency Provider Emergency Medicine; PCP Family Medicine
DX: R25.2 Cramp and spasm (principal); E83.42 Hypomagnesemia; G40.909 Epilepsy, unspecified, not intractable, without status epilepticus; Z79.899 Other long term (current) drug therapy
CPT/HCPCS: 36415; 71045; 80053; 80164; 80185; 82800; 83605; 83735; 84443; 85025; 87040; 93005; 96374; 99284; 99285

== ENCOUNTER 2024-02-12 22:03 | Emergency (ER) | payer MEDICARE, MEDICAID, SELFPAY ==
[2024-02-12] VITALS (15 sets, daily range): BP systolic 84–107; BP diastolic 46–64; PULSE 83–109; TEMP 37.1; O2SAT 95–97
--- NOTE | 2024-02-12 22:19 | ECG_ITS ---
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
[2024-02-12] MEDS: 0.9 % SODIUM CHLORIDE 500 ML IV (22:33)
[2024-02-12] MEDS: ONDANSETRON PF 4 MG/2 ML VIAL IV (22:33)
[2024-02-12] MEDS: ACETAMINOPHEN 325 MG TABLET 650 MG PO (22:33)
[2024-02-12 22:50] LABS: Basophils Percent Auto 0.5 % (0.2-2.0); Eosinophils Absolute Auto 0.1 10^3/uL (0.0-0.7); Eosinophils Percent Auto 1.7 % (0.9-7.0); Hematocrit 33.6 % (36.0-48.0); Hemoglobin 10.6 g/dL (12.0-16.0); Immature Granulocytes Abs Auto 0.05 10^3/uL (0.00-0.03); Immature Granulocytes Pct Auto 0.6 % (0.0-0.5); Lymphocytes Absolute Auto 3.8 10^3/uL (1.2-3.8); Mean Corpuscular HGB Conc 31.5 g/dL (29.9-35.2); Mean Corpuscular Hemoglobin 32.1 pg (26.7-34.0); Mean Corpuscular Volume 101.8 fL (81.0-99.0); Monocytes Absolute Auto 0.8 10^3/uL (0.3-0.8); Monocytes Percent Auto 10.5 % (1.7-12.0); Neutrophils Percent Auto 37.7 % (43.0-75.0); Platelet Count 286 10^3/uL (150-450); Red Cell Distribution Width 14.5 % (11.0-15.0); White Blood Count 7.8 10^3/uL (4.0-11.0)
--- NOTE | 2024-02-12 22:52 | ED_ITS ---
HPI - Seizure General Chief Complaint: Seizure Stated Complaint: seizures Time Seen by Provider: 02/12/24 22:17 Source: family and caregiver History of Present Illness HPI Narrative: This 33-year-old female with a history of Cerebral palsy and seizures who is on Valproic acid and dilantin and lives in a local fci is brought to the emergency department by EMS after she had a seizure. She has been seen here twice for seizures and was found to have a low Dilantin and Depakote level. She is followed by Dr. [facility]. Her mother did speak to the neurologist nurse and medications have been increased. She was seen here on 02/07 and 02/08 ror recurrent seizures and on 02/09 for muscle spasms. She has not been seen by her neurologist yet. The patient's mother and caregiver accompanied her to the emergency department. The caregiver admits that her seizure tonight was not tonic-clonic but was more focal in nature. An IV was established by EMS and she was given a dose of Valium prior to arrival. Upon arrival she is at her baseline. She complains of feeling dizzy and has some mild headache and nausea. The mother states that she will be in touch with the [facility] neurologist again tomorrow. Seizure History: Yes Related Data Home Medications ?Medication ?Instructions ?Recorded ?Confirmed acetaminophen 325 mg tablet 650 mg PO Q4H PRN fever or pain 02/08/24 02/09/24 baclofen 20 mg tablet 20 mg PO BID 02/08/24 02/09/24 cetirizine 10 mg tablet 10 mg PO DAILY 02/08/24 02/09/24 divalproex 250 mg tablet,delayed 250 mg PO BID 02/08/24 02/09/24 release (Depakote) escitalopram oxalate 20 mg tablet 20 mg PO DAILY 02/08/24 02/09/24 lamotrigine 100 mg tablet 100 mg PO QPM 02/08/24 02/09/24 lamotrigine 150 mg tablet 150 mg PO DAILY 02/08/24 02/09/24 phenytoin sodium extended 100 mg 100 mg PO QAM 02/08/24 02/09/24 capsule phenytoin sodium extended 30 mg 130 mg PO QPM 02/08/24 02/09/24 capsule (Dilantin) divalproex 125 mg tablet,delayed mg PO 02/09/24 release Allergies Allergy/AdvReac Type Severity Reaction Status Date / Time azithromycin Allergy Severe Verified 02/12/24 22:13 Penicillins Allergy Severe Verified 02/12/24 22:13 Sulfa (Sulfonamide Allergy Severe Verified 02/12/24 22:13 Antibiotics) tramadol Allergy Severe Verified 02/12/24 22:13 Review of Systems ROS Status of ROS 10 or more systems reviewed and unremark able except as noted in history and below Exam Narrative Exam Narrative: Nurses note and vital signs reviewed and patient is not hypoxic. She is afebrile with a normal blood pressure, she is not tachycardic with a pulse of 109 General: Alert, nontoxic female, she is awake and communicative at her baseline, no distress noted Skin: Warm, dry, no pallor noted. There is no rash noted. Head: Normocephalic, atraumatic Eye: Normal conjunctiva, no drainage, EOMI. PERRL Ears, Nose, Mouth, and Throat: oral mucosa is moist. Cardiovascular: Regular Rate and [id number], pulses are brisk and equal bilaterally Respiratory: Patient is in no distress, no accessory muscle use, lungs are clear to auscultation, no wheezing, rales or rhonchi Back: non-tender, no CVA tenderness bilaterally to percussion. GI: Normal bowel sounds, no tenderness to palpation, no masses appreciated. No rebound, guarding, or rigidity noted. Musculoskeletal: Lower extremity contractures and LUE contracture- no sign of acute injury Neurological: A&O x4, at baseline Psychiatric: Cooperative Constitutional Vital Signs, click to edit/add: Last Vital Signs Temp 98.8 F 02/12/24 22:06 Pulse 90 02/12/24 23:10 Resp 21 H 02/12/24 23:10 BP 107/64 02/12/24 22:09 Pulse Ox 96 02/12/24 23:10 O2 Del Method Room Air 02/12/24 22:06 Course Vital Signs Vital signs: Vital Signs Temperature 98.8 F 02/12/24 22:06 Pulse Rate 109 H 02/12/24 22:06 Respiratory Rate 16 02/12/24 22:06 Blood Pressure 107/64 02/12/24 22:06 Pulse Oximetry 96 02/12/24 22:06 Oxygen Delivery Method Room Air 02/12/24 22:06 Temperature 98.8 F 02/12/24 22:06 Pulse Rate 90 02/12/24 23:10 Respiratory Rate 21 H 02/12/24 23:10 Blood Pressure 107/64 02/12/24 22:09 Pulse Oximetry 96 02/12/24 23:10 Oxygen Delivery Method Room Air 02/12/24 22:06 MDM - Seizure MDM Narrative Medical decision making narrative: The patient's mother and I discussed the patient's current medications. On 02/09/2024 she had a valproic acid of 31.5, of 02/10/2024 she had a valproic acid 37.7 and on 02/12/2024 she has a valproic acid of less than 3. We reviewed the patient's MAR and apparently on February 06 her Depakote 250 mg that was to be given to her twice daily was discontinued and she was started on another formulation of Depakote 125 mg to be taken 2 tabs by mouth twice a day. It is unclear exactly how these medication changes came about but she will be given a dose of 500mg Depakote and 100mg Dilantin in the ED. The patient's mother states she suspected something like this was going on because the patient was at home with her for [facility] and the medication that was usually brown was now orange. The patient started feeling 'jumpy again and requested an additional dose of ativan but since that is short in stock, she was given 5mg po valium. She has not had any seizure activity while in the ED and she and her mother are in agreement with her returning to her current living situation. Her mother will be following up tomorrow with the facility and the pharmacy Lab Data Attestation: I reviewed the patient's lab results. Lab results narrative: subtherapeutic dilantin and valprioc acid levels Labs: Lab Results 02/12/24 02/12/24 Range/Units 22:34 22:35 WBC 7.8 (4.0-11.0) 10^3/uL RBC 3.30 L (4.20-5.40) 10^6/uL Hgb 10.6 L (12.0-16.0) g/dL Hct 33.6 L (36.0-48.0) % MCV 101.8 H (81.0-99.0) fL MCH 32.1 (26.7-34.0) pg MCHC 31.5 (29.9-35.2) g/dL RDW 14.5 (11.0-15.0) % Plt Count 286 (150-450) 10^3/uL MPV 9.0 L (9.5-13.5) fL Neut % (Auto) 37.7 L (43.0-75.0) % Lymph % (Auto) 49.0 (20.5-60.0) % [place] % (Auto) 10.5 (1.7-12.0) % Eos % (Auto) 1.7 (0.9-7.0) % Baso % (Auto) 0.5 (0.2-2.0) % Neut # (Auto) 3.0 (1.4-6.5) 10^3/uL Lymph # (Auto) 3.8 (1.2-3.8) 10^3/uL [place] # (Auto) 0.8 (0.3-0.8) 10^3/uL Eos # (Auto) 0.1 (0.0-0.7) 10^3/uL Baso # (Auto) 0.0 (0.0-0.1) 10^3/uL Abs Immat Gran (auto) 0.05 H (0.00-0.03) 10^3/uL Imm/Tot Granulo (auto) 0.6 H (0.0-0.5) % Sodium 142 (136-145) mmol/L Potassium 4.3 (3.5-5.1) mmol/L Chloride 104 (98-107) mmol/L Carbon Dioxide 31.0 (21.0-32.0) mmol/L Anion Gap 11.3 BUN 10.0 (7.0-18.0) mg/dL Creatinine 0.42 L (0.55-1.02) mg/dL Est GFR ( Amer) >60 (>=60) Est GFR (Non-Af Amer) >60 (>=60) BUN/Creatinine Ratio 23.8 Glucose 90 (74-106) mg/dL Calcium 9.2 (8.5-10.1) mg/dL Magnesium 1.7 L (1.8-2.4) mg/dL Total Bilirubin 0.1 L (0.2-1.0) mg/dL AST 18 (15-37) U/L ALT 22 (14-59) U/L Alkaline Phosphatase 108 (46-116) U/L Total Protein 7.0 (6.4-8.2) g/dL Albumin 3.2 L (3.4-5.0) g/dL Globulin 3.8 g/dL Albumin/Globulin Ratio 0.8 Phenytoin 8.9 L (10.0-20.0) ug/mL Valproic Acid <3.0 L (50.0-100.0) ug/mL ECG Data Attestation: I personally reviewed and interpreted this ECG as follows: (Sinus rhythm at 90 beats for minute, normal axis, Q wave in lead 3, no acute ST segment elevation or T-wave inversion) Discharge Plan Discharge Stand Alone Forms: Portal Instructions Chief Complaint: Seizure Clinical Impression: Seizure secondary to subtherapeutic anticonvulsant medication Patient Disposition: Home, Self-Care Time of Disposition Decision: 01:27 Condition: Good Prescriptions / Home Meds: No Action baclofen 20 mg tablet 20 mg PO BID cetirizine 10 mg tablet 10 mg PO DAILY Dilantin 30 mg capsule 130 mg PO QPM acetaminophen 325 mg tablet 650 mg PO Q4H PRN (Reason: fever or pain) escitalopram oxalate 20 mg tablet 20 mg PO DAILY lamotrigine 100 mg tablet 100 mg PO QPM lamotrigine 150 mg tablet 150 mg PO DAILY phenytoin sodium extended 100 mg capsule 100 mg PO QAM divalproex [Depakote] 250 mg tablet,delayed release (DR/EC) 250 mg PO BID divalproex 125 mg tablet,delayed release (DR/EC) PO Hold Instructions: Doctor's Order Print Language: Khmer Instructions: Recurrent Seizures in Adults (ED) Referrals: EZRA DOUGLAS [Primary Care Provider] - 1 week
[2024-02-12 23:08] LABS: Alanine Aminotransferase 22 U/L (14-59); Albumin Globulin Ratio 0.8; Albumin Level 3.2 g/dL (3.4-5.0); Alkaline Phosphatase 108 U/L (46-116); Anion Gap 11.3; Aspartate Amino Transferase 18 U/L (15-37); BUN Creatinine Ratio 23.8; Bilirubin Total 0.1 mg/dL (0.2-1.0); Calcium 9.2 mg/dL (8.5-10.1); Chloride 104 mmol/L (98-107); Estimated GFR (African America >60 (>=60); Estimated GFR (Non-African Ame >60 (>=60); Globulin 3.8 g/dL; Glucose 90 mg/dL (74-106); Potassium 4.3 mmol/L (3.5-5.1); Sodium 142 mmol/L (136-145)
[2024-02-12 23:18] LABS: Valproic Acid <3.0 ug/mL (50.0-100.0)
[2024-02-12 23:26] LABS: Magnesium 1.7 mg/dL (1.8-2.4)
[2024-02-12 23:37] LABS: Phenytoin Dilantin 8.9 ug/mL (10.0-20.0)
[2024-02-13] VITALS (24 sets, daily range): BP systolic 83–116; BP diastolic 47–68; PULSE 71–111; O2SAT 93–97
[2024-02-13] MEDS: DIVALPROEX SODIUM 250 MG TABLET.DR PO ×2 (00:31)
[2024-02-13] MEDS: DIAZEPAM 5 MG TABLET PO (00:31)
== END 2024-02-13 04:45 | disposition home or self-care (01) ==
PROVIDERS: Emergency Provider Emergency Medicine; PCP Family Medicine
DX: G40.909 Epilepsy, unspecified, not intractable, without status epilepticus (principal); G80.9 Cerebral palsy, unspecified; R89.2 Abnormal level of other drugs, medicaments and biological substances in specimens from other organs, systems and tissues; Z79.899 Other long term (current) drug therapy
CPT/HCPCS: 36415; 80053; 80164; 80185; 83735; 85025; 93005; 96374; 99284